=== PATIENT | male | born 1990 | race Caucasian/White ===

== ENCOUNTER 2021-06-24 15:10 | Emergency (ER) | payer OTHER, SELFPAY ==
[2021-06-24 15:18] VITALS: BP 147/95; PULSE 65; RESP 18; TEMP 36.9; O2SAT 100
[2021-06-24 17:54] VITALS: BP 138/103; PULSE 83; RESP 16; O2SAT 100
[2021-06-24 18:12] LABS: Basophils Absolute Auto 0.1 K/mm3 (0.0-0.1); Basophils Percent Auto 0.6 % (0.2-1.2); Eosinophils Absolute Auto 0.1 K/mm3 (0-0.3); Eosinophils Percent Auto 1.1 % (0-4.4); Hematocrit 47.8 % (42.0-52.0); Hemoglobin 16.4 g/dL (14.0-18.0); Immature Granulocyte Absolute 0.03 K/mm3 (0.00-0.031); Immature Granulocyte Percent A 0.4 % (0-0.5); Lymphocytes Absolute Auto 2.78 K/mm3 (0.9-3.2); Lymphocytes Percent Auto 33.3 % (18.3-44.2); Mean Corpuscular HGB Conc 34.3 g/dl (32-36); Mean Corpuscular Hemoglobin 30.3 pg (26-34); Mean Corpuscular Volume 88.4 fl (80-100); Mean Platelet Volume 10.4 fl (7.4-10.4); Monocytes Absolute Auto 0.8 K/mm3 (0.1-0.6); Monocytes Percent Auto 10.1 % (2.6-8.5); Neutrophils Absolute Auto 4.6 K/mm3 (1.3-6.7); Neutrophils Percent Auto 54.5 % (45.5-73.1); Platelet Count Result 313 k/mm3 (150-375); Red Blood Count 5.41 M/mm3 (4.6-6.20); Red Cell Distribution Width 12.4 % (11.5-14.5); White Blood Count 8.3 K/mm3 (4.5-10.0)
[2021-06-24 18:22] LABS: Alanine Aminotransferase 55 U/L (4-50); Alkaline Phosphatase 67 U/L (38-126); Anion Gap 13 mmol/L (8-16); Aspartate Amino Transferase 47 U/L (17-59); Bilirubin,Total 0.6 mg/dL (0.2-1.3); Blood Urea Nitrogen 15 mg/dL (9-20); Calcium 10.2 mg/dL (8.4-10.2); Carbon Dioxide 28 mmol/L (22-30); Chloride 99 mmol/L (98-107); Creatine Kinase 74 U/L (55-170); Estimated CRCL calculation 93 ml/min; Estimated Glomerular Filt Rate > 60; Glucose 95 mg/dL (65-110); Potassium 4.1 mmol/L (3.4-5.0); Sodium 140 mmol/L (137-145)
[2021-06-24 18:39] LABS: Amphetamine Screen Urine Negative (Negative); Barbiturate Screen Urine Negative (Negative); Benzodiazepines Screen Urine Negative (Negative); Cannabinoid Screen Urine Positive (Negative); Cocaine Screen Urine Positive (Negative); Methadone Screen Urine Negative (Negative); Opiate Screen Urine Negative (Negative); Phencyclidine Screen Urine Negative (Negative)
--- NOTE | 2021-06-24 18:40 | ED.GENADULT ---
HPI - General Adult General Chief complaint: Unspecified Stated complaint: Shaking,SOB Time Seen by Provider: 06/24/21 17:51 History of Present Illness HPI narrative: Patient presents with leg concerns. Patient reports he took a CBD gummy last night he woke up in the middle night with his legs shaking symptoms gradually improved throughout the day his legs were feeling heavy he was concerned so came in for evaluation. Patient reports he takes CBD Gummies before and never had a reaction like this. Denies any focal areas of numbness or weakness denies any lightheadedness, palpitations, shortness of breath Related Data Home Medications Medication Instructions Recorded Confirmed No Home Medications 06/24/21 06/24/21 Allergies Allergy/AdvReac Type Severity Reaction Status Date / Time No Known Allergies Allergy Verified 06/24/21 15:22 Review of Systems Review of Systems: CONSTITUTIONAL: Denies fever, chills, or sweats. EYES: Denies visual changes, redness, or discharge. ENT: Denies rhinorrhea, congestion, sore throat, or otalgia. CARDIOVASCULAR: Denies chest pain, palpitations, or edema. RESPIRATORY: Denies cough or dyspnea. GASTROINTESTINAL: Denies abdominal pain, nausea, vomiting, or diarrhea. GENITOURINARY: Denies dysuria or hematuria. SKIN: Denies rash or itching. MUSCULOSKELETAL: Denies back pain, joint pain, or myalgia. NEUROLOGIC: Denies headache, numbness, dizziness, or weakness. PSYCHIATRIC: Denies anxiety or depression. All systems reviewed & are unremarkable except as noted in HPI and below Exam Narrative: GENERAL: Well-appearing, well-nourished, and in no acute distress. HEAD: Normocephalic, atraumatic. EYES: PERRLA and EOMI. ENT: Nares clear, no rhinorrhea or epistaxis. Mucous membranes moist. NECK: Supple. No adenopathy or masses. No carotid bruits or JVD CHEST: Clear to auscultation. No respiratory distress. No wheezes rales or rhonchi HEART: Regular rate and rhythm. No murmur heard. Normal peripheral pulses. ABDOMEN: Soft, nontender, nondistended, normal active bowel sounds. EXTREMITIES: Normal range of motion. No edema. SKIN: Warm, dry, no rash. NEURO: No focal deficits. Alert and oriented x3. PSYCH: Normal mood and affect. Course Reevaluation(s) Reevaluation #1: Patient continues to clinically well labs plan reviewed with patient Date: 06/24/21 Time: 18:49 Vital Signs Vital signs: Vital Signs Temperature 36.9 C 06/24/21 15:18 Pulse Rate 65 06/24/21 15:18 Respiratory Rate 18 06/24/21 15:18 Blood Pressure 147/95 H 06/24/21 15:18 Pulse Oximetry 100 06/24/21 15:18 Temperature 36.9 C 06/24/21 15:18 Pulse Rate 83 06/24/21 17:54 Respiratory Rate 16 06/24/21 17:54 Blood Pressure 138/103 H 06/24/21 17:54 Pulse Oximetry 100 06/24/21 17:54 Medical Decision Making MDM Narrative Medical decision making narrative: H&P as above, vss, pt looks clinically well, exam without focal areas of tenderness, labs for THC and cocaine in the UDS, additional labs/img considered, symptomatic relief available as needed, on reevaluation pt continues to looks clinically well. Suspect reaction to substance, dns seizure, rhabdo. plan to tx/monitor as op w/ pcm f/u findings/plan discussed with pt, pt agree/comfortable with plan, return precautions given Vital Signs Vital Signs: Vital Signs Temperature 36.9 C 06/24/21 15:18 Pulse Rate 65 06/24/21 15:18 Respiratory Rate 18 06/24/21 15:18 Blood Pressure 147/95 H 06/24/21 15:18 Pulse Oximetry 100 06/24/21 15:18 Temperature 36.9 C 06/24/21 15:18 Pulse Rate 83 06/24/21 17:54 Respiratory Rate 16 06/24/21 17:54 Blood Pressure 138/103 H 06/24/21 17:54 Pulse Oximetry 100 06/24/21 17:54 Lab Data Result diagrams: 06/24/21 18:06 06/24/21 18:06 Labs: Lab Results 06/24/21 06/24/21 06/24/21 Range/Units 18:06 18:06 18:15 WBC 8.3 (4.5-10.0) K/mm3 RBC 5.41 (4.6-6.20)
== END 2021-06-24 19:13 | disposition home or self-care (01) ==
PROVIDERS: Emergency Provider Emergency Medicine; PCP Family Medicine
DX: F14.10 Cocaine abuse, uncomplicated (principal); F12.90 Cannabis use, unspecified, uncomplicated
CPT/HCPCS: 36415; 80053; 80307; 82550; 85025; 99283

== ENCOUNTER 2021-08-23 12:31 | Emergency (ER) | payer OTHER, SELFPAY ==
[2021-08-23 12:40] VITALS: BP 129/84; PULSE 72; RESP 16; TEMP 36; O2SAT 100
--- NOTE | 2021-08-23 13:31 | ED.EAR ---
HPI - Ear Problem General Chief complaint: Ear Stated complaint: Ear Pain Time Seen by Provider: 08/23/21 13:32 Source: patient Mode of arrival: ambulatory Limitations: no limitations History of Present Illness HPI Narrative: Jacinto Ca is a 30 yo male [facility] with [facility] PMH, marijuana smoker, who has bilateral ear pain and congestion for 3 days with a lot of drainage and worsening symptoms even though he has been using Mucinex and [id number] cold medications. He states the back of his tongue is black and that is a new finding for him also Related Data Allergies Allergy/AdvReac Type Severity Reaction Status Date / Time No Known Allergies Allergy Verified 08/23/21 13:26 Review of Systems Review of Systems: CONSTITUTIONAL: Denies fever, chills, sweats. EYES: Denies visual changes, redness, discharge. ENT: Has rhinorrhea, has congestion, has sore throat, bilateral otalgia. CARDIOVASCULAR: Denies chest pain, palpitations, edema. RESPIRATORY: Denies dyspnea, wheezing, productive cough GASTROINTESTINAL: Denies abdominal pain, nausea, vomiting, diarrhea. GENITOURINARY: Denies dysuria, hematuria, abnormal discharge SKIN: Denies rash or itching. NEUROLOGIC: Denies numbness, or focal weakness. PSYCHIATRIC: Denies anxiety or depression. [facility] Past Medical History Medical History No active medical problems Family History Family History Other No acute medical problems Social History Social History (Updated 08/23/21 @ 13:42 by Vanessa Pyle CNP) Smoking status: Never smoker Alcohol intake: current Comments At time of signature, I agree with nursing past medical, surgical, social and family history. There is no relevant family history pertinent to the presenting complaint. Exam Narrative: GENERAL: This is a well-nourished, well-developed patient, in mild distress. HEAD: normocephalic, atraumatic. EYES: Sclera clear/white. Vision is grossly intact. EARS: External ears normal, auditory canals erythema with fluid behind TMs,. Hearing grossly intact. NOSE: External nose normal without nasal discharge, nares with redness, has rhinorrhea. THROAT: Mucous membranes moist, posterior pharynx erythema NECK: Neck supple tender tender CARDIOVASCULAR: Regular rate and rhythm without murmurs, gallops, or rubs. RESPIRATORY: Clear to auscultation. Breath sounds equal bilaterally. No wheezes, rales, or rhonchi. GASTROINTESTINAL: Abdomen soft, SKIN: warm, intact with no suspicious lesions or rash, good texture and turgor. NEURO: awake, alert, and oriented to person, place and time. There were no obvious focal neurologic abnormalities. Steady gait EXTREMITIES: Normal range of motion. BACK: Nontender without deformity Course Course Emergency Course: Patient comes with 3 days of severe bilateral ear pain and congestion and hoarseness is due to a lot of drainage Started on Zithromax and prednisone along with Zyrtec Vital Signs Vital signs: Vital Signs Temperature 96.8 F L 08/23/21 12:40 Pulse Rate 72 08/23/21 12:40 Respiratory Rate 16 08/23/21 12:40 Blood Pressure 129/84 08/23/21 12:40 Pulse Oximetry 100 08/23/21 12:40 Temperature 96.8 F L 08/23/21 12:40 Pulse Rate 72 08/23/21 12:40 Respiratory Rate 16 08/23/21 12:40 Blood Pressure 129/84 08/23/21 12:40 Pulse Oximetry 100 08/23/21 12:40 Medical Decision Making Differential Diagnosis Differential Diagnosis: Pharyngitis versus bilateral otitis media versus sinus infection Vital Signs Vital Signs: Vital Signs Temperature 96.8 F L 08/23/21 12:40 Pulse Rate 72 08/23/21 12:40 Respiratory Rate 16 08/23/21 12:40 Blood Pressure 129/84 08/23/21 12:40 Pulse Oximetry 100 08/23/21 12:40 Temperature 96.8 F L 08/23/21 12:40 Pulse Rate 72 08/23/21 12:40 Respiratory Rate 16 10/
== END 2021-08-23 13:51 | disposition home or self-care (01) ==
PROVIDERS: Emergency Provider Nurse Practitioner; PCP Family Medicine
DX: H66.003 Acute suppurative otitis media without spontaneous rupture of ear drum, bilateral (principal)
CPT/HCPCS: 99213; G0463

== ENCOUNTER 2022-06-06 14:02 | Emergency (ER) | payer OTHER, SELFPAY ==
--- NOTE | ~2022-06-06 | XR_ITS ---
EXAMINATION: XR chest 2V Exam Date/Time: 06/06/2022 15:15 CDT HISTORY: Eval for pneumonia, LT SIDED CP PAIN X 2 DAYS, NO CARDIAC HX Comparison: None available. RESULT: Lines, tubes, and devices: None. Lungs and pleura: Clear. Left medial lower lung scar. Cardiomediastinal silhouette: Stable cardiomediastinal silhouette. Other: No acute osseous or upper abdominal finding. IMPRESSION: No acute cardiopulmonary process. Reviewed, dictated and finalized at location K.
--- NOTE | 2022-06-06 14:10 | ECG_ITS ---
Measurements Intervals Melbeta Rate: 68 P: 40 HI: 150 QRS: -10 QRSD: 91 T: 20 QT: 363 QTc: 386 Interpretive Statements SINUS RHYTHM BASELINE ARTIFACT- V4 NORMAL ECG Electronically Signed On 06-06-2022 15:29:33 CDT by Oleg Garcia D.O.
[2022-06-06 14:11] VITALS: BP 140/97; PULSE 81; RESP 16; TEMP 36.6; O2SAT 99
[2022-06-06 14:19] VITALS: PULSE 70; O2SAT 99
[2022-06-06 14:20] VITALS: O2SAT 99
[2022-06-06] MEDS: ACETAMINOPHEN 500 MG TABLET 1000 MG PO (15:25)
[2022-06-06 15:26] VITALS: BP 147/82; PULSE 67; RESP 20; O2SAT 97
--- NOTE | 2022-06-06 15:35 | ED.CHESTPAIN ---
HPI - Chest Pain General Chief Complaint: Chest Pain Stated Complaint: CP Time Seen by Provider: 06/06/22 14:47 History of Present Illness HPI narrative: This is a 31-year-old male who denies past medical history, who presents the emergency department today complaining of intermittent, 4 out of 10 sharp chest pain on the left side, lasting seconds at a time. He denies known aggravating or alleviating factors. He has not had pain like this before. This is not associated with nausea, vomiting, diaphoresis, or other shortness of breath. He denies known trauma or recent heavy lifting. He states he is otherwise in his normal state of health, though he does admit drinking last night. Related Data Allergies Allergy/AdvReac Type Severity Reaction Status Date / Time No Known Allergies Allergy Verified 06/06/22 14:20 Review of Systems Review of Systems: CONSTITUTIONAL: Denies fever, chills, or sweats. EYES: Denies visual changes, redness, or discharge. ENT: Denies rhinorrhea, congestion, sore throat, or otalgia. CARDIOVASCULAR: chest pain, Denies palpitations, or edema. RESPIRATORY: Denies cough or dyspnea. GASTROINTESTINAL: Denies abdominal pain, nausea, vomiting, or diarrhea. GENITOURINARY: Denies dysuria or hematuria. SKIN: Denies rash or itching. MUSCULOSKELETAL: Denies back pain, joint pain, or myalgia. NEUROLOGIC: Denies headache, numbness, dizziness, or weakness. PSYCHIATRIC: Denies anxiety or depression. Constitutional: Comments: CONSTITUTIONAL: Denies fever, chills, or sweats. EYES: Denies visual changes, redness, or discharge. ENT: Denies rhinorrhea, congestion, sore throat, or otalgia. CARDIOVASCULAR: chest pain, Denies palpitations, or edema. RESPIRATORY: Denies cough or dyspnea. GASTROINTESTINAL: Denies abdominal pain, nausea, vomiting, or diarrhea. GENITOURINARY: Denies dysuria or hematuria. SKIN: Denies rash or itching. MUSCULOSKELETAL: Denies back pain, joint pain, or myalgia. NEUROLOGIC: Denies headache, numbness, dizziness, or weakness. PSYCHIATRIC: Denies anxiety or depression. [facility] Past Medical History Medical History No active medical problems Family History Family History Other No acute medical problems Social History Social History Smoking status: Never smoker Alcohol intake: current Exam Narrative: GENERAL: Well-appearing, well-nourished, and in no acute distress. HEAD: Normocephalic, atraumatic. EYES: PERRLA and EOMI. ENT: Nares clear, no rhinorrhea or epistaxis. Mucous membranes moist. Oropharynx without tonsillar hypertrophy exudate or other lesions. NECK: Supple. No adenopathy or masses. No carotid bruits or JVD CHEST: Clear to auscultation. No respiratory distress. No wheezes rales or rhonchi HEART: Regular rate and rhythm. No murmur heard. Normal peripheral pulses. ABDOMEN: Soft, nontender, nondistended, normal active bowel sounds. EXTREMITIES: Normal range of motion. No edema. SKIN: Warm, dry, no rash. NEURO: No focal deficits. Alert and oriented x3. PSYCH: Normal mood and affect. Course Course Emergency Course: 16:38 - Patient presents with atypical chest pain. HEART score of 0. ECG not concerning for ischemia. Troponin negative. Chest x-ray not concerning for acute cardiopulmonary process. Patient's pain improved with oral analgesics. Will discharge with primary care follow-up. Discussed return emergency precautions including signs symptoms of ischemia, and respiratory distress. The patient voices understanding and is comfortable with this plan. All questions answered to the patient's satisfaction. Vital Signs Vital signs: Vital Signs Temperature 97.8 F 06/06/22 14:11 Pulse Rate 81 06/06/22 14:11 Respiratory Rate 16 06/06/22 14:11 Blood Pressure 140/97 H 06/06/22 14:11 Pulse Oxime
[2022-06-06 15:53] LABS: Basophils Percent Auto 0.6 % (0.2-1.2); Eosinophils Absolute Auto 0.1 K/mm3 (0-0.3); Eosinophils Percent Auto 0.8 % (0-4.4); Hematocrit 44.4 % (42.0-52.0); Hemoglobin 15.3 g/dL (14.0-18.0); Immature Granulocyte Absolute 0.03 K/mm3 (0.00-0.031); Immature Granulocyte Percent A 0.4 % (0-0.5); Lymphocytes Absolute Auto 1.73 K/mm3 (0.9-3.2); Lymphocytes Percent Auto 24.2 % (18.3-44.2); Mean Corpuscular HGB Conc 34.5 g/dl (32-36); Mean Corpuscular Hemoglobin 30.2 pg (26-34); Mean Corpuscular Volume 87.7 fl (80-100); Mean Platelet Volume 10.6 fl (7.4-10.4); Monocytes Absolute Auto 0.7 K/mm3 (0.1-0.6); Monocytes Percent Auto 9.5 % (2.6-8.5); Neutrophils Absolute Auto 4.6 K/mm3 (1.3-6.7); Neutrophils Percent Auto 64.5 % (45.5-73.1); Platelet Count Result 299 k/mm3 (150-375); Red Blood Count 5.06 M/mm3 (4.6-6.20); Red Cell Distribution Width 12.9 % (11.5-14.5); White Blood Count 7.2 K/mm3 (4.5-10.0)
[2022-06-06 16:04] LABS: Alanine Aminotransferase 58 U/L (6-50); Albumin Level 5.2 g/dL (3.5-5.1); Alkaline Phosphatase 84 U/L (38-126); Anion Gap 10 mmol/L (8-16); Aspartate Amino Transferase 37 U/L (17-59); Bilirubin,Total 0.5 mg/dL (0.2-1.3); Blood Urea Nitrogen 13 mg/dL (9-20); Calcium 10.3 mg/dL (8.4-10.2); Carbon Dioxide 26 mmol/L (22-30); Chloride 104 mmol/L (98-107); Estimated CRCL calculation 123 ml/min; Estimated Glomerular Filt Rate > 60; Glucose 96 mg/dL (65-110); Potassium 4.3 mmol/L (3.4-5.0); Sodium 140 mmol/L (137-145)
[2022-06-06 16:14] LABS: Troponin I < 0.012 ng/mL (0.000-0.034)
[2022-06-06 16:49] VITALS: BP 140/93; PULSE 68; RESP 18; O2SAT 97
== END 2022-06-06 16:51 | disposition home or self-care (01) ==
PROVIDERS: Emergency Provider Preventive Medicine Aerospace Medicine; PCP Family Medicine
DX: R07.89 Other chest pain (principal)
CPT/HCPCS: 36415; 71046; 80053; 84484; 85025; 93005; 99284; A9270

== ENCOUNTER 2022-08-09 08:50 | Emergency (ER) | payer OTHER, SELFPAY ==
--- NOTE | 2022-08-09 09:00 | ED.URI ---
HPI - URI/Sore Throat General Stated Complaint: Sore Throat Time Seen by Provider: 08/09/22 09:00 Source: patient Mode of arrival: ambulatory Limitations: no limitations History of Present Illness HPI Narrative: Mr. Ca is a 31-year-old male patient presenting to the clinic today with complaints of a sore throat, nasal congestion, and ear congestion x1 day. He reports no known fever or chills. States that his throat began hurting yesterday and has gradually gotten worse. He also reports when he blows his nose he is blowing out some yellow drainage. States that one of his coworkers has recently tested positive for COVID MD elicited complaint: sore throat and nasal congestion Related Data Home Medications Medication Instructions Recorded Confirmed No Home Medications 08/09/22 08/09/22 Allergies Allergy/AdvReac Type Severity Reaction Status Date / Time No Known Allergies Allergy Verified 08/09/22 09:06 Review of Systems Review of Systems: Pertinent positives per HPI. Patient denies any fever, chills, rash, headache, visual changes, dizziness, cough, shortness of breath, chest pain, palpitations, nausea, vomiting, diarrhea, constipation, abdominal pain, or any urinary issues. PMFSH Past Medical History Medical History No active medical problems Family History Family History Other No acute medical problems Social History Social History Smoking status: Never smoker Alcohol intake: current Comments At the time of my signature, I reviewed and agree with the nursing past medical, surgical, social, and family history. There is no relevant family history pertinent to the patient complaint. Exam Narrative: General: Well-developed, well nourished, in no apparent distress Head: Normocephalic, atraumatic Eyes: Pupils equally round and reactive to light bilaterally, EOM intact, sclera and conjunctive clear, no discharge, lids normal Ears: TMs intact and clear, ear canals clear, no drainage, grossly hearing normal. Nose: Nares patent, clear nasal discharge, mild inflammation, no sinus tenderness. Mouth: Oropharynx without lesions or masses, good dentition, MMM. Oropharynx red mild tonsillar enlargement without exudate Neck: Supple, trachea midline, no enlargement of anterior or posterior cervical nodes, no thyroid masses or goiter palpable. Cardio: Regular rate and rhythm, s1 and s2 normal, no murmur appreciated. Resp: Clear to auscultation bilaterally anteriorly and posteriorly, no rhonchi, rales, wheezing or rubs Course Course Emergency Course: Portions of this record may have been created with voice recognition software. Level of Care: Express Care Visit Vital Signs Vital signs: Vital signs reviewed MDM - URI/Sore Throat MDM Narrative Medical decision making narrative: At the time of visit patient is resting comfortably on the exam table. Strep screen and rapid COVID testing was obtained and both were negative in the clinic. Strep culture sent to the lab. Due to patient's exposure I feel that it is best we do a PCR test and send that off and have him off work until he receives results. He is agreeable to this. Supportive measures were discussed with the patient he voiced understanding of discharge instructions and agrees to the treatment plan Differential Diagnosis Differential diagnosis: Likely upper respiratory infection, otitis media, sinusitis, viral infection, bronchitis, influenza, pharyngitis and other Discharge Plan Discharge Clinical Impression: Acute upper respiratory infection, PND (post-nasal drip), Exposure to COVID-19 virus Patient Disposition: Home, Self-Care Condition: Stable Instructions: Antibiotic Form, Upper Respiratory Infection (ED), Postnasal Drip (DC), COVID-19 (Coronaviru
[2022-08-09 09:02] VITALS: BP 140/88; PULSE 65; RESP 16; TEMP 36.5; O2SAT 99
[2022-08-09 19:01] LABS: SARS-CoV-2 RNA PCR Negative
== END 2022-08-09 09:30 | disposition home or self-care (01) ==
PROVIDERS: Emergency Provider Nurse Practitioner Family
DX: J06.9 Acute upper respiratory infection, unspecified (principal); R09.82 Postnasal drip; Z20.822 Contact with and (suspected) exposure to COVID-19
CPT/HCPCS: 87081; 87426; 87880; 99213; C9803; G0463; U0003; U0005

== ENCOUNTER 2025-04-27 14:01 | Outpatient (CLI) | payer OTHER, SELFPAY ==
--- NOTE | ~2025-04-27 | MR_ITS ---
EXAMINATION: MR shoulder RT w con DATE: 04/27/2025 15:30 INDICATION: Glenoid labral tear at the right shoulder TECHNIQUE: Magnetic resonance imaging (MRI) of the right shoulder was performed following intra-jose cular gadolinium contrast injection and without intravenous contrast. Details of the glenohumeral robbie nt injection have been dictated separately. Sequences included axial T2-weighted FS FSE, axial T1-we ighted FS FSE, coronal oblique T1-weighted FS FSE, coronal oblique T2-weighted FSE, sagittal T2-weigh katya FS FSE, sagittal T1-weighted FSE, and ABER (abduction external rotation) T1-weighted FS FSE. COMPARISON: None. FINDINGS: Coracoacromial arch: The acromion undersurface is curved in morphology (type II). The coracoacromial ligament is normal. M inimal acromioclavicular osteoarthritis. Rotator cuff: Tiny linear focus of intrasubstance contrast along the articular side of the distal supraspinatus ten don at its superior facet footplate with subtle fraying along the articular surface on the ABER image s but without a measurable tear defect or evident retracted tear margin. The subscapularis is normal. Normal rotator cuff muscle bulk and signal. Biceps tendon, glenoid labrum and glenohumeral cartilage: Long head of the biceps tendon is normal. Glenohumeral cartilage is normal. Small shallow tear along the chondral labral junction at the 10:00 to 11:00 position of the posterior superior glenoid labrum. Bones and other: Normal marrow signal with no edema, fracture or abnormal marrow replacing process. No amount fluid in the subacromial/subdeltoid bursa to suggest bursitis. IMPRESSION: 1. Small shallow tear at the chondral labral junction at the posterior superior glenoid labrum. 2. Mild fraying with minimal contrast extending along a tiny articular sided split tear of the anteri or distal supraspinatus tendon without a measurable tear defect or discrete tear margin. Reviewed, dictated and finalized at location A. IMPRESSION: 1. Small shallow tear at the chondral labral junction at the posterior superior glenoid labrum. 2. Mild fraying with minimal contrast extending along a tiny articular sided sp lit tear of the anterior distal supraspinatus tendon without a measurable tear defect or discrete tear margin.
--- NOTE | ~2025-04-27 | XR_ITS ---
EXAMINATION: XR fl inj shoulder RT - MR/CT DATE: 04/27/2025 15:07 INDICATION: Right glenoid labral tear TECHNIQUE: A time-out was performed to verify the patient's name, date of , and procedure to b e performed. The procedure including the risks, benefits, and alternatives was discussed with the pat ient. Risks discussed included bleeding and infection. The patient understood the risks and agreed to proceed. The skin overlying the rotator cuff interval the right glenohumeral joint was prepped and draped in usual sterile fashion. Anesthetic was administered with 1% lidocaine subcutaneously. A 22 G needle was advanced under fluoroscopic guidance into the joint. Injection of 1 mL of Omnipaque 24 0 confirmed intra-articular position of the needle. Subsequently, injectate consisting of 12 mL of 2 :1:1 mixture of sterile saline:Omnipaque 240:1% lidocaine mixed 200:1 with 529 mg/mL Multihance gadol inium contrast was instilled with intra-articular administration confirmed with intermittent fluoros copy. There were no immediate complications. Fluoroscopy exposure time was 2.2 minutes. The total num amando of images was 212. Total DAP was 0.859 Gycm^2. FINDINGS: Real-time fluoroscopy demonstrates the needle in the right glenohumeral joint. . IMPRESSION: 1. Successful right glenohumeral joint injection of dilute gadolinium contrast mixture for subsequent MRI arthrogram which will be dictated separately. Reviewed, dictated and finalized at location A.
--- OUTSIDE RECORDS SUMMARY | 2025-04-27 14:07 | XMS_ITS | Referral Summary ---
Author Organization [address] Address [address] [place] [phone] Care Team Providers Care Human Resources Recruiter Name Role Phone Ricco Mckeon MD Primary Care Provider Encounters Date Type Department Care Team Description 03/19/2025 Results Follow-Up [facility] Primary Care at [address] [phone] Ricco Mckeon MD CBC with auto differential, Comprehensive metabolic panel, Lipid panel, Additional followed-up results: 6 03/16/2025 11:29 AM CDT - 03/16/2025 11:59 PM [place] [address] Class 1 obesity due to excess calories without serious comorbidity with body mass index (BMI) of 33.0 to 33.9 in adult; Encounter for hepatitis C screening test for low risk patient Discharge Disposition: Discharge to home or self care 03/16/2025 11:30 AM CDT Lab [facility] Outpatient Lab at [address] [phone] Preventative health care (Primary Dx) 03/16/2025 10:30 AM CDT Office Visit [facility] at [address] [phone] Ricco Mckeon MD Preventative health care (Primary Dx); Class 1 obesity due to excess calories without serious comorbidity with body mass index (BMI) of 33.0 to 33.9 in adult; Encounter for hepatitis C screening test for low risk patient; History of lipoma; Acute bacterial conjunctivitis of left eye; Vitamin D deficiency; Prediabetes; Elevated LFTs 03/15/2025 Documentation [facility] [address] [place] [phone] Allison Wall MA 03/15/2025 Orders Only [facility] [address] [place] [phone] Yarelis Marcano PA Glenoid labral tear, right, initial encounter (Primary Dx) 03/15/2025 8:15 AM CDT Ancillary Procedure [facility] Imaging at [address] [phone] Acute pain of right shoulder 03/15/2025 8:30 AM CDT Office Visit [facility] [address] [place] [phone] Yarelis Marcano PA Glenoid labral tear, right, initial encounter (Primary Dx) 03/02/2025 Results Follow-Up [facility] at [address] [phone] Juan Jose Khan NP Influenza A/B, RSV, and COVID-19 PCR Nasopharyngeal, Throat culture Throat 03/01/2025 3:29 PM CDT - 03/01/2025 11:59 PM CDT Hospital Encounter [address] [address] Nasopharyngitis acute Discharge Disposition: Discharge to home or self care 03/01/2025 3:00 PM CDT Office Visit [facility] at [address] [phone] Caterina Grimm NP Nasopharyngitis acute (Primary Dx) 02/14/2025 Telephone [facility] [address] [place] [address] [place] [phone] Ranjan Martini MD 02/13/2025 2:00 PM CDT Office Visit [facility] at [address] [phone] Juan Jose Khan, ALICE Acute pain of right shoulder (Primary Dx); Right acute serous otitis media, recurrence not specified 01/30/2025 3:00 PM CDT Office Visit [facility] at [address] [phone] Cheryl Duncan NP Bilateral impacted cerumen (Primary Dx); Non-recurrent acute serous otitis media of right ear from Last 3 Months Allergies No known active allergies Medications cetirizine (ZyrTEC) 10 mg tablet Take 1 tablet (10 mg total) by mouth daily Active fluticasone propionate (FLONASE) 50 mcg/actuation nasal sprayIndication s:Right acute serous otitis media, recurrence not specified Administer 2 sprays into each nostril daily 1 each Active Active Problems Problem Noted Date Diagnosed Date Vitamin D deficiency 03/19/2025 Assessment & Plan (03/19/2025 8:49 AM CDT): - new diagnosis - noted to have vitamin D deficiency on 02/2025 - most recent Vitamin D level is as shown below - patient is to be started on Vitamin D supplementation - patient is start 5000 international units of vitamin D3 daily OTC Lab Results Component Value Date 25HYDROVITD 19 (L) 03/16/2025 Prediabetes 03/19/2025 Assessment & Plan (03/19/2025 8:50 AM CDT): - new diagnosis - noted with A1c of 5.8 - first time, so recommend lifestyle intervention, weight management' - recheck in 4 months, A1c, order placed Elevated LFTs 03/19/2025 Assessment & Plan (03/19/2025 8:53 AM CDT): - new diagnosis - noted on lab work - no prior records to compare with - has known Obesity, Body mass index is 33.67 kg/m . - screen for alcohol use/overuse Lab Results Component Value Date ALT 80 (H) 03/16/2025 AST 52 (H) 03/16/2025 ALKPHOS 78 03/16/2025 BILITOT 0.4 03/16/2025 Glenoid labrum tear, right, subsequent encounter 03/19/2025 Class 1 obesity due to exces s calories without serious comorbidity with body mass index (BMI) of 33.0 to 33.9 in adult 03/16/2025 Assessment & Plan (03/16/2025 11:08 AM CDT): Wt Readings from Last 3 Encounters: 03/16/25 94.6 kg (208 lb 9.6 oz) 03/15/25 93.8 kg (206 lb 12.8 oz) 03/01/25 92.1 kg (203 lb) Body mass index is 33.67 kg/m . - chronic condition, not at goal, worse, reports was mostly <200 lbs - BMI Follow-up includes: nutrition counseling, exercise counseling and education provided - Recommend to exercise at least 30 minutes moderate to vigorous exercise most days of the week. (minimum 150 minutes weekly) Preventative health care 03/16/2025 Assessment & Plan (03/19/2025 8:48 AM CDT): - New or chronic worsening conditions: Pre-diabetes, elevated LFTs, vitamin D deficiency - Mental health: no significant psychiatric/mental health conditions affecting her day to day functioning - Dental health: Recommend regular dental care and cleaning. Discussed importance of regular tooth brushing, flossing, and dental visits. - Nutrition: Recommend moderation in sodium/caffeine intake, saturated fat and cholesterol, caloric balance, sufficient intake of fresh fruits, vegetables - Exercise: Recommend to exercise at least 30 minutes moderate to vigorous exercise most days of the week. (minimum 150 minutes weekly) - Immunizations: Age and sex appropriate immunizations reviewed and offered History of lipoma 03/16/2025 Assessment & Plan (03/16/2025 11:08 AM CDT): - hx of excision of lipoma of back Immunizations Immunization Administration Dates Next Due DTP 01/29/1994 DTaP, Unspecified 06/29/1997,06/13/1992,04/16/19 92,1991 HPV, Quadrivalent 06/26/2013,02/16/2013,12/19/19 13 Hep A, Pediatric 06/28/2007,06/23/2006 Hep B, Unspecified 05/31/2001,06/08/2000, 997 HiB 01/02/1993,06/13/1992,04/16/1992 Influenza, Trivalent, IM (MDV) 09/15/2011 Influenza, Unspecified 03/16/2025(Deferr ed: Patient Refused),11/22/2023(Deferred: Patient Refused),08/21/2009 MMR 06/29/1997,01/02/1993 Meningococcal MCV4P (Menactra) 06/23/2006 Tdap 06/23/2006 Social History Tobacco Use Types Packs/Day Years Used Date Smoking Tobacco: Never Smokeless Tobacco: Never Tobacco Cessation:Counseling Given: Not Answered Alcohol Use Standard Drinks/Week Comments Yes 0 (1 standard drink = 0.6 oz pur e alcohol) socially AUDIT-C Answer Date Recorded Q1: How often do you have a drink containing alc ohol? 2-3 times a week 10/09/2021 Q2: How many drinks containi ng alcohol do you have on a typical day when you are drinking? 1 or 2 10/09/2021 Q3: How often do you have si x or more drinks on one occasion? 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 Gender Identity Not on file Sexual Orientation Not on file Last Filed Vital Signs Vital Sign Reading Time Taken Comments Blood Pressure 122/86 03/16/2025 10:44 AM CDT Pulse 74 03/16/2025 10:44 AM CDT Temperature 36.8 C (98.2 F) 03/16/2025 10:44 AM CDT Respiratory Rate 18 03/15/2025 8:42 AM CDT Oxygen Saturation 98% 03/16/2025 10:44 AM CDT Inhaled Oxygen Concentration - - Weight 94.6 kg (208 lb 9.6 oz) 03/16/2025 10:44 AM CDT Height 167.6 cm (5' 6) 03/16/2025 10:44 AM CDT Body Mass Index 33.67 03/16/2025 10:44 AM CDT Plan of Treatment Not on file Procedures Procedure Name Priority Date/Time Associated Diagnosis Comments EGFR Routine 03/16/2025 11:29 AM CDT Class 1 obesity due to excess calories without serious comorbidity with body mass index (BMI) of 33.0 to 33.9 in adult DIFFERENTIAL AUTO Routine 03/16/2025 11:29 AM CDT Class 1 obesity due to excess calories without serious comorbidity with body mass index (BMI) of 33.0 to 33.9 in adult VITAMIN D 25 HYDROXY Routine 03/16/2025 11:29 AM CDT Class 1 obesity due to excess calories without serious comorbidity with body mass index (BMI) of 33.0 to 33.9 in adult THYROID FUNCTION CASCADE Routine 03/16/2025 11:29 AM CDT Class 1 obesity due to excess calories without serious comorbidity with body mass index (BMI) of 33.0 to 33.9 in adult HEMOGLOBIN A1C Routine 03/16/2025 11:29 AM CDT Class 1 obesity due to excess calories without serious comorbidity with body mass index (BMI) of 33.0 to 33.9 in adult LIPID PANEL Routine 03/16/2025 11:29 AM CDT Class 1 obesity due to excess calories without serious comorbidity with body mass index (BMI) of 33.0 to 33.9 in adult COMPREHENSIVE METABOLIC PANEL Routine 03/16/2025 11:29 AM CDT Class 1 obesity due to excess calories without serious comorbidity with body mass index (BMI) of 33.0 to 33.9 in adult CBC WITH AUTO DIFFERENTIAL Routine 03/16/2025 11:29 AM CDT Class 1 obesity due to excess calories without serious comorbidity with body mass index (BMI) of 33.0 to 33.9 in adult HEPATITIS C ANTIBODY Routine 03/16/2025 11:29 AM CDT Encounter for hepatitis C screening test for low risk patient XR SHOULDER RIGHT 2 OR MORE VIEWS Schedule Routine, Read Routine (OP Routine) 03/15/2025 8:27 AM CDT Acute pain of right shoulder THROAT CULTURE Routine 03/01/2025 3:29 PM CDT Nasopharyngitis acute INFLUENZA A/B, RSV, AND COVID-19 PCR Routine 03/01/2025 3:29 PM CDT Nasopharyngitis acute POC INFLUENZA A/B, COVID-19 ANTIGEN Routine 03/01/2025 3:24 PM CDT Nasopharyngitis acute POCT RAPID STREP Routine 03/01/2025 3:20 PM CDT Nasopharyngitis acute WA REMOVAL IMPACTED CERUMEN INSTRUMENTATION UNILAT Routine 01/30/2025 3:00 PM CDT Bilateral impacted cerumen from Last 3 Months Results * eGFR (03/16/2025 11:29 AM CDT) eGFR >90 >=60 mL/min/1. 73 m2 Comment: Interpretive Data Reference Interval Normal >/= 90 mL/min/1.73m2 Mildly decreased* 60 - 89 mL/min/1.73m2 Mildly to moderately decreased 45 - 59 mL/min/1.73m2 Moderately to severely decreased 30 - 44 mL/min/1.73m2 Severely decreased 15 - 29 mL/min/1.73m2 Kidney Failure < 15 mL/min/1.73m2 *Relative to young adult level Estimated glomerular filtration rate is determined by the 2020 CKD-EPI equation recommended by the National Kidney Foundation (A Unifying Approach to GFR Estimation: Recommendations of the NKF-ASK Task Force on Reassessing the Inclusion of Race in Diagnosing Kidney Disease, JASN 202). The CKD-EPI equation should not be used for patients with unstable renal function and has not been validated in children and those over 70. Current interpretive data was last reviewed 2021. Blood 03/16/2025 11:2 9 AM CDT 03/16/2025 10:00 PM CDT Ricco Mckeon MD LAB BLOOD ORDERABLES Fi nal Result [facility] [id number] [address] [place] [address] * (ABNORMAL) Differential, auto (03/16/2025 11:29 AM CDT) Neutrophil abs 5.77 1.50 - 6.50 K/cumm Imm gran abs 0.03 0.00 - 0.10 K/cumm [facility] Lymphocyte abs 3.07 0.80 - 3.30 K/cumm [facility] Monocyte abs 1.01(H) 0.20 - 0.80 K/cumm [facility] Eosinophil abs 0.13 0.00 - 0.50 K/cumm [facility] Basophil abs 0.05 0.00 - 0.10 K/cumm [facility] Neutrophil pct 57.4 % [facility] Comment: Interpretive Data Percent cell count reference ranges are not reported, since discordance with absolute values may lead to misinterpretation of CBC data. Current Interpretive Data was last revised on 2018. Imm gran pct 0.3 % [facility] Comment: Interpretive Data Percent cell count reference ranges are not reported, since discordance with absolute values may lead to misinterpretation of CBC data. Current Interpretive Data was last revised on 2018. Lymphocyte pct 30.5 % [facility] Comment: Interpretive Data Percent cell count reference ranges are not reported, since discordance with absolute values may lead to misinterpretation of CBC data. Current Interpretive Data was last revised on 2018. Monocyte pct 10.0 % [facility] Comment: Interpretive Data Percent cell count reference ranges are not reported, since discordance with absolute values may lead to misinterpretation of CBC data. Current Interpretive Data was last revised on 2018. Eosinophil pct 1.3 % [facility] Comment: Interpretive Data Percent cell count reference ranges are not reported, since discordance with absolute values may lead to misinterpretation of CBC data. Current Interpretive Data was last revised on 2018. Basophil pct 0.5 % [facility] Comment: Interpretive Data Percent cell count reference ranges are not reported, since discordance with absolute values may lead to misinterpretation of CBC data. Current Interpretive Data was last revised on 2018. Blood 03/16/2025 11:2 9 AM CDT 03/16/2025 9:50 PM CDT Ricco Mckeon MD LAB BLOOD ORDERABLES Fi nal Result Performing Organization Address [facility] Co de Phone Number DIONNE [phone] [address] [facility] [place] [address] * Thyroid Function [place] (03/16/2025 11:29 AM CDT) Pathologist [facility] TSH 1.96 0.30 - 4.20 mcIUnit/mL Blood 03/16/2025 11:2 9 AM CDT 03/16/2025 9:50 PM CDT Ricco Mckeon MD LAB BLOOD ORDERABLES Fi nal Result Performing Organization Address [facility] de Phone Number DIONNE DIMAS [phone] [address] [facility] [place] [address] * (ABNORMAL) CBC with auto differential (03/16/2025 11:29 AM CDT) Pathologist [facility] WBC 10.06(H) 3.80 - 9.90 K/cumm Hgb 15.9 13.0 - 17.5 g/dL [facility] Hct 48.6 38.9 - 50.3 % [facility] Plt 323 150 - 400 K/cumm [facility] MPV 11.4 9.1 - 12.3 fL [facility] RBC 5.32 4.30 - 5.80 M/cumm [facility] MCV 91.4 81.3 - 96.4 fL [facility] MCH 29.9 27.1 - 33.3 pg [facility] MCHC 32.7 32.3 - 35.7 g/dL [facility] RDW CV 12.1 11.1 - 14.9 % [facility] RDW SD 40.6 35.7 - 48.1 fL [facility] NRBC abs 0.00 0.00 - 0.01 K/cumm [facility] Blood 03/16/2025 11:2 9 AM CDT 03/16/2025 9:50 PM CDT Ricco Mckeon MD LAB BLOOD ORDERABLES Fi nal Result Performing Organization Address [facility] de Phone Number [facility] [id number] [address] [place] [address] * Hepatitis C antibody Blood (03/16/2025 11:29 AM CDT) [facility] Hep C Ab Nonreactive Nonreactive Comment: Interpretive Data Nonreactive: Antibodies to HCV not detected. Does NOT exclude the possibility of recent exposure to HCV. Equivocal: Equivocal for HCV antibodies. Supplemental molecular testing will be automatically performed to determine infection status in accordance with current CDC screening recommendations. Reactive: Positive for HCV antibodies. This may represent current or past HCV infection. Supplemental molecular testing will be automatically performed to determine current infection status in accordance with current CDC screening recommendations. Interpretive data was last revised on 2020. Blood 03/16/2025 11:2 9 AM CDT 03/16/2025 9:50 PM CDT Ricco Mckeon MD LAB MICROBIOLOGY - GENE RAL ORDERABLES Final Result Performing Organization Address [facility] de Phone Number [facility] [phone] [address] [facility] [place] [address] * (ABNORMAL) Vitamin D 25 hydroxy (03/16/2025 11:29 AM CDT) [facility] Vitamin D 25-OH 19(L) 30 - 80 ng/mL Blood 03/16/2025 11:2 9 AM CDT 03/16/2025 9:50 PM CDT Ricco Mckeon MD LAB BLOOD ORDERABLES Fi nal Result Performing Organization Address [facility] de Phone Number DIONNE DIMAS [phone] Department [place] [address] * (ABNORMAL) Hemoglobin A1c (03/16/2025 11:29 AM CDT) Hgb A1C 5.8(H) 4.0 - 5.6 % Estimated Average Glucose 120 mg/dL DIONNE DIMAS Comment: The ADA recommends reporting an estimated Average Glucose (eAG) with all Hemoglobin A1c results using the equation derived from a study of 507 normal and diabetic adults. Minority populations were underrepresented and children were not included. (Diabetes Care 31:0726-5549, 2008). The eAG is not equivalent to a fasting glucose. Blood 03/16/2025 11:2 9 AM CDT 03/16/2025 9:50 PM CDT Ricco Mckeon MD LAB BLOOD ORDERABLES nal Result Performing Organization Address [facility] de Phone Number DIONNE DIMAS [phone] [address] [place] [address] * Lipid panel (03/16/2025 11:29 AM CDT) Pathologist [facility] Cholesterol 168 30 - 199 mg/dL Comment: Interpretive Data Ages < or = 19 years Acceptable: <170 mg/dL Borderline high: 170-199 mg/dL High: >or= 200 mg/dL Ages > or = 20 years Desirable: <200 mg/dL Borderline high: 200-239 mg/dL High: >or= 240 mg/dL Literature References: 1. Expert Panel on Integrated Guidelines for Cardiovascular Health and Risk Reduction in Children and Adolescents. Pediatrics 2011;128:S213 2. NCEP Expert Panel. Circulation 2004;110:227 Current Interpretive Data was last revised on 2018. Triglycerides 126 <=149 mg/dL DIONNE DIMAS Comment: Interpretive Data Ages < or = 9 years Acceptable: <75 mg/dL Borderline high: 75-99 mg/dL High: >or= 100 mg/dL Ages 10 to 20 years Acceptable: <90 mg/dL Borderline high: 90-129 mg/dL High: >or= 130 mg/dL Ages > or = 20 years Desirable: <150 mg/dL Borderline high: 150-199 mg/dL High: 200-499 mg/dL Very high: >or= 499 mg/dL Literature References: 1. Expert Panel on Integrated Guidelines for Cardiovascular Health and Risk Reduction in Children and Adolescents. Pediatrics 2011;128:S213 2. NCEP Expert Panel. Circulation 2004;110:227 Current Interpretive Data was last revised on 2018. HDL 42 >=40 mg/dL DIONNE DIMAS Comment: Interpretive Data Ages < or = 19 years Acceptable: >45 mg/dL Borderline low: 40-45 mg/dL Low: <40 mg/dL Ages > or = 20 years Desirable: >or= 60 mg/dL Low: <40 mg/dL Literature References: 1. Expert Panel on Integrated Guidelines for Cardiovascular Health and Risk Reduction in Children and Adolescents. Pediatrics 2011;128:S213 2. NCEP Expert Panel. Circulation 2004;110:227 Current Interpretive Data was last revised on 2018. LDL, calculated 103 <=129 mg/dL DIONNE DIMAS Comment: Interpretive Data Ages < or = 19 years Acceptable: <110 mg/dL Borderline high: 110-129 mg/dL High: >or= 130 mg/dL Ages > or = 20 years Optimal: <100 mg/dL Near optimal: 100-129 mg/dL Borderline high: 130-159 mg/dL High: >160 mg/dL Calculated using the Mohit LDL-C estimating equation. This equation was implemented on 2024. Prior to this date LDL-C was estimated using the Friedewald equation. Literature References: 1. Expert Panel on Integrated Guidelines for Cardiovascular Health and Risk Reduction in Children and Adolescents. Pediatrics 2011;128:S213 2. NCEP Expert Panel. Circulation 2004;110:227 3. Mohit Morgan et al. BRITTANY Cardiol. 2020 March 22;5(5):540-548. doi: 10.1001/jamacardio.2020.0013 Current Interpretive Data was last revised on 2024. Non-HDL Cholesterol 126 mg/dL DIONNE DIMAS Comment: Interpretive Data Ages < or = 19 years Acceptable: <120 mg/dL Borderline high: 120-144 mg/dL High: >145 mg/dL Ages > or = 20 years When triglycerides are >200 mg/dL, Non-HDL cholesterol is a secondary target of therapy with treatment goals that are 30 mg/dL greater than the LDL cholesterol target. Literature References: 1. Expert Panel on Integrated Guidelines for Cardiovascular Health and Risk Reduction in Children and Adolescents. Pediatrics 2011;128:S213 2. NCEP Expert Panel. Circulation 2004;110:227 Current Interpretive Data was last revised on 2018. Chol/HDL ratio 4 [facility] Blood 03/16/2025 11:2 9 AM CDT 03/16/2025 9:50 PM CDT Narrative [facility] - 03/16/2025 10:27 PM CDT Has the patient been fasting for 8 hours or more?->No Ricco Mckeon MD LAB BLOOD ORDERABLES Fi nal Result [facility] [id number] [address] [place] [address] * (ABNORMAL) Comprehensive metabolic panel (03/16/2025 11:29 AM CDT) Sodium 140 135 - 145 mmol/L Potassium, pl 4.4 3.3 - 4.9 mmol/L [facility] Chloride 104 97 - 110 mmol/L [facility] CO2 23 22 - 32 mmol/L [facility] Anion gap 13 2 - 15 mmol/L [facility] BUN 17 6 - 25 mg/dL [facility] Creatinine 0.94 0.80 - 1.30 mg/dL [facility] Glucose 98 70 - 199 mg/dL [facility] Comment: Interpretive Data Fasting glucose >/= 126 mg/dl is diagnostic for diabetes. Fasting is defined as no caloric intake for at least 8 hours. Fasting glucose between 100 mg/dl to 125 mg/dl is diagnostic of prediabetes. In a patient with classic symptoms of hyperglycemia or hyperglycemic crisis, a random glucose >/= 200 mg/dl is diagnostic for diabetes. In the absence of unequivocal hyperglycemia, results should be confirmed by repeat testing. The classification and Diagnosis of Diabetes Diabetes Care 2021; 46: S19-S40. Current interpretive data was last revised 2022. Calcium 9.5 8.5 - 10.3 mg/dL [facility] Bilirubin, total 0.4 0.1 - 1.2 mg/dL [facility] Protein, pl 7.8 6.5 - 8.5 g/dL [facility] Albumin 4.6 3.5 - 5.0 g/dL [facility] Alk phos 78 40 - 130 Units/L [facility] ALT 80(H) 7 - 55 Units/L [facility] AST 52(H) 10 - 50 Units/L [facility] Blood 03/16/2025 11:2 9 AM CDT 03/16/2025 9:50 PM CDT Ricco Mckeon MD LAB BLOOD ORDERABLES Fi nal Result [facility] [id number] [address] [place] [address] * XR Shoulder Right 2 or More Views (03/15/2025 8:27 AM CDT) Anatomical Region Laterality Modality Upper Extremities, Shoulder Right Digi alaina Radiography Narrative 03/15/2025 9:16 AM CDT Radiographs of the right shoulder reviewed interpreted. No acute fractures or destructive osseous lesions. Joint space is maintained. Yarelis DURANT IMG XR PROCEDURES Final Result * Influenza A/B, RSV, and COVID-19 PCR Nasopharyngeal (03/01/2025 3:29 PM CDT) COVID-19 RNA Negative Negative CH Influenza A RNA Negative Negative [facility] CH Influenza B RNA Negative Negative [facility] CH RSV RNA Negative Negative C[facility]ER Comment: Interpretive data: Testing performed by [facility]. This test is performed using the [employer] Xpert Xpress CoV-2/Flu/RSV plus assay. This is a multiplex, real-time reverse transcriptase PCR assay intended for the qualitative detection of nucleic acid from SARS-CoV-2, influenza A, influenza B, and respiratory syncytial virus. This assay has been cleared by the [place] Food and Drug administration. The performance characteristics have been verified by the [facility]. Results must be considered in the clinical context, and a negative result does not rule out infection. Interpretive Data last revised 2023 Nasopharyngeal 03/01/2025 3: 29 PM CDT 03/01/2025 9:30 PM CDT Narrative DIONNE - 03/01/2025 10:45 PM CDT Is the Patient experiencing symptoms consistent with COVID?->Yes Caterina Grimm NP LAB MICROBIOLOGY - GENERAL ORD ERABLES Final Result Performing Organization Address [facility]/ZIP Co de Phone Number ABDIFATAHBLAIR DIMAS [address] [address] [place] [address] [place] * Throat culture Throat (03/01/2025 3:29 PM CDT) Report Final Report: No growth of pathogens. Comment:Testing performed by : [facility], [address] [place]., [address] Throat 03/01/2025 3:29 PM CDT 03/02/2025 2:01 AM CDT Narrative DIONNE - 03/02/2025 9:04 PM CDT Testing performed by [facility] Microbiology Laboratory ([phone]). us Caterina Grimm NP LAB MICROBIOLOGY - GENERAL ORD ERABLES Final Result Performing Organization Address [facility] Co de Phone Number DIONNE JUDIE [address] [address] [place] [address] * POC Influenza A/B, COVID-19 antigen (03/01/2025 3:24 PM CDT) Influenza A Ag, POC Negative Negative [facility] Influenza B Ag, POC Negative Negative [facility] COVID-19 Ag POC Presumptive Negative Presumptive Negative, Invalid [facility] Nasal 03/01/2025 3:24 PM CDT us Caterina Grimm NP POINT OF CARE TEST ORDERABLES Final Result [facility] [address] [place] [address], [facility] * POCT rapid strep A (03/01/2025 3:20 PM CDT) Rapid Strep A, POC Negative Negative Swab 03/01/2025 3:20 PM CDT us Caterina Grimm DISEASE INTERVENTION SPECIALIST POINT OF CARE TEST ORDERABLES Final Result * WA REMOVAL IMPACTED CERUMEN INSTRUMENTATION UNILAT (01/30/2025 3:00 PM CDT) Narrative Cheryl Duncan NP - 01/30/2025 3:00 PM CDT Cheryl Duncan NP 01/30/2025 4:56 PM Ear Cerumen Removal Performed by: Cheryl Duncan NP Authorized by: Cheryl Duncan NP Consent Given by: Patient Verbal consent obtained: Yes Location: Bilateral L ear cerumen impacted?: Yes L ear method of removal: Instrumentation L ear instrumentation: Curette L ear magnification: Otoscope R ear cerumen impacted?: Yes R ear method of removal: Instrumentation R ear instrumentation: Curette R ear magnification: Otoscope Inspection: TM intact Hearing quality: Improved Patient tolerance: Patient tolerated the procedure well with no immediate complications Cheryl Duncan DISEASE INTERVENTION SPECIALIST IN CLINIC/BEDSIDE ORDERABL ES Final Result from Last 3 Months Insurance [employer] OPEN ACCESS [facility] CHOICE PLUS Care Teams Human Resources Recruiter Relationship Specialty Start Date End Date Ricco Mckeon MD PCP - General Family Medicine 03/16/25
--- OUTSIDE RECORDS SUMMARY | 2025-04-27 14:07 | XMS_ITS | Clinical Summary ---
Author Organization [facility] Address [address] [place] [address] Care Team Providers Care Half Section Ironer Name Role Phone Unavailable Primary Care Provider Unavailabl e Allergies No known active allergies Medications No known medications Active Problems No known active problems Family History Medical History Relation Name Comments Cancer Maternal Grandmother Diabetes Maternal Grandmother Stroke Paternal Grandmother Relation Name Status Comments Maternal Grandmother Paternal Grandmother Social History Tobacco Use Types Packs/Day Years Used Date Smoking Tobacco: Never Smokeless Tobacco: Never Tobacco Cessation:Counseling Given: Not Answered Alcohol Use Standard Drinks/Week Comments Yes 0 (1 standard drink = 0.6 oz pur e alcohol) Sex and Gender Information Value Date Recorded Sex Assigned at Not on file Legal Sex Male 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 Gender Identity Not on file Sexual Orientation Not on file Last Filed Vital Signs Vital Sign Reading Time Taken Comments Blood Pressure 132/93 11/05/2023 1:16 PM JOINT RUNNER Pulse 61 11/05/2023 1:16 PM JOINT RUNNER Temperature - - Respiratory Rate - - Oxygen Saturation - - Inhaled Oxygen Concentration - - Weight 92.1 kg (203 lb) 11/05/2023 1:16 PM JOINT RUNNER Height 170.2 cm (5' 7) 11/05/2023 1:16 PM JOINT RUNNER Body Mass Index 31.79 11/05/2023 1:16 PM JOINT RUNNER Plan of Treatment Health Maintenance Due Date Last Done Comments DTAP/TDAP/TD VACCINES (1 - Tdap) 2010 HEPATITIS B VACCINES (1 of 3 - 19+ 3-dose series) 2010 INFLUENZA VACCINE (#1) 2024 HPV VACCINES Aged Out No longer eligi ble based on patient's age to complete this topic Insurance [facility] OPEN ACCESS HMO
--- OUTSIDE RECORDS SUMMARY | 2025-04-27 14:08 | XMS_ITS | Encounter Summary ---
Author Organization [facility] Healthcare Address [address] [place] [address] Care Team Providers Care Blend Plant Operator Name Role Phone Ricco Mckeon MD Primary Care Provider Reason for Visit * Reason Onset Date Comments Call Back 03/19/2025 Encounter Details Date Type Department Care Team (Latest Contact Info) Description 03/19/2025 Results Follow-Up [facility] Medical [facility] Primary Care at [address] [phone] Ricco Mckeon MD [address] [place] [address] [address] [place] [address] CBC with auto differential, Comprehensive metabolic panel, Lipid panel, Additional followed-up results: 6 Social History Tobacco Use Types Packs/Day Years Used Date Smoking Tobacco: Never Smokeless Tobacco: Never Alcohol Use Standard Drinks/Week Comments Yes 0 [...] on file 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 - 03/19/2025 12:28 PM CDT Call Back Caller???s Concern: Patient notified, and transferred to the appt. Line to make a 3 month follow-upon labs. Does message need to be routed? No * Result Encounter Note - Ricco Mckeon MD - 03/19/2025 8:59 AM CDT Tried to call patient but went to voicemail x2. Lab results showed the following findings. Vitamin-D deficiency and will need start taking vitamin D3 5000 IU which is available [id number]. Good fasting blood sugar, normal kidney functions but mildly elevated liver enzymes. I tried to review past records which I do not have I am not sure ifthis is new. I will need to have this repeated with a repeat blood work in 3 months along with the vitamin-D level to see if this has improved. There is small evidence of borderline prediabetes basedon average blood sugars but this is minimal in something that can easily be improved with diet. Otherwise no signs of anemia or major blood count abnormalities, no prior exposure to hepatitis-C with good cholesterol levels and thyroid function. Summary I have set up repeat lab work for the vitamin-D, liver enzymes as well as average blood sugar for prediabetes to be done in 3 months. Please set up a follow-up with me in 3 months the same time as well. documented in this encounter Plan of Treatment Not on file documented as of this encounter Visit Diagnoses Not on filedocumented in this encounter Care Teams Blend Plant Operator Relationship Specialty Start Date End Date Ricco Mckeon MD PCP - General Family Medicine 03/16/25 documented as of this encounter
--- OUTSIDE RECORDS SUMMARY | 2025-04-27 14:08 | XMS_ITS | Encounter Summary ---
Author Organization [facility] Healthcare Address [address] [place] [address] Care Team Providers Care Research And Evaluation Analyst Name Role Phone Unknown, Notinfile Primary Care Provider Unavail Ricco Bell MD Primary Care Provider Encounter Details Date Type Department Care Team (Late st Contact Info) Description 03/02/2025 Results Follow-Up [facility] Medical [facility] Convenient Care at [address] [phone] Juan Jose Khan NP [address] [place] [address] [address] [place] [address] Influenza A/B, RSV, and COVID-19 PCR Nasopharyngeal, Throat culture Throat Social History Tobacco Use Types Packs/Day Years [...] points, staff should administer the PHQ-9) 0 04/16/2020 Sex and Gender Information Value Date Recorded Sex Assigned at Not on file 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
--- OUTSIDE RECORDS SUMMARY | 2025-04-27 14:08 | XMS_ITS | Clinical Summary ---
Author Organization [address] Address [address] [place] [address] Care Team Providers Care Ice Cream Dipper Name Role Phone Ricco Mckeon MD Primary Care Provider Allergies No known active allergies Medications cetirizine [...] hx of excision of lipoma of back Encounters Date Type Department Care Team Description 03/19/2025 Results Follow-Up [facility] Primary Care at [address] [phone] Ricco Mckeon MD CBC with auto differential, Comprehensive metabolic panel, Lipid panel, Additional followed-up results: 6 03/16/2025 11:30 AM CDT Lab [facility] Outpatient Lab at [address] [phone] Preventative health care (Primary Dx) 03/16/2025 11:29 AM CDT - 03/16/2025 11:59 PM CDT Hospital Encounter [address] [address] Class 1 obesity due to excess calories without serious comorbidity with body mass index (BMI) of 33.0 to 33.9 in adult; Encounter for hepatitis C screening test for low risk patient Discharge Disposition: Discharge to home or self care 03/16/2025 10:30 AM CDT Office Visit [facility] Primary Care at [address] [phone] Ricco Mckeon MD Preventative health care (Primary Dx); Class 1 obesity due to excess calories without serious comorbidity with body mass index (BMI) of 33.0 to 33.9 in adult; Encounter for hepatitis C screening test for low risk patient; History of lipoma; Acute bacterial conjunctivitis of left eye; Vitamin D deficiency; Prediabetes; Elevated LFTs 03/15/2025 8:30 AM CDT Office Visit [facility] [address] [place] [phone] Yarelis Marcano PA Glenoid labral tear, right, initial encounter (Primary Dx) 03/15/2025 8:15 AM CDT Ancillary Procedure [facility] Imaging at [address] [phone] Acute pain of right shoulder 03/15/2025 Documentation [facility] [address] [place] [phone] Allison Wall MA 03/15/2025 Orders Only [facility] Medical [facility] Orthopedic and Sports Medicine [address] [place] [phone] Yarelis Marcano PA Glenoid labral tear, right, initial encounter (Primary Dx) 03/02/2025 Results Follow-Up [facility]ient [facility] at [address] [phone] Juan Jose Khan, ALICE Influenza A/B, RSV, and COVID-19 PCR Nasopharyngeal, Throat culture Throat 03/01/2025 3:29 PM CDT - 03/01/2025 11:59 PM CDT Hospital Encounter [place] [phone] Nasopharyngitis acute Discharge Disposition: Discharge to home or self care 03/01/2025 3:00 PM CDT Office Visit [facility] at [address] [phone] Caterina Grimm NP Nasopharyngitis acute (Primary Dx) 02/14/2025 Telephone [facility] [address] [phone] Ranjan Martini MD 02/13/2025 2:00 PM CDT Office Visit [facility] at [address] [phone] Juan Jose Khan, ALICE Acute pain of right shoulder (Primary Dx); Right acute serous otitis media, recurrence not specified 01/30/2025 3:00 PM CDT Office Visit [facility] at [address] [phone] Cheryl Duncan NP Bilateral impacted cerumen (Primary Dx); Non-recurrent acute serous otitis media of right ear from Last 3 Months Immunizations Immunization Administration Dates Next Due DTP 01/29/1994 DTaP, Unspecified 06/29/1997,06/13/1992,04/16/19 92,1991 HPV, Quadrivalent 06/26/2013,02/16/2013,12/19/19 13 Hep A, Pediatric 06/28/2007,06/23/2006 Hep B, Unspecified 05/31/2001,06/08/2000, 997 HiB 01/02/1993,06/13/1992,04/16/1992 Influenza, Trivalent, IM (MDV) 09/15/2011 Influenza, Unspecified 03/16/2025(Deferr ed: Patient Refused),11/22/2023(Deferred: Patient Refused),08/21/2009 MMR 06/29/1997,01/02/1993 Meningococcal MCV4P (Menactra) 06/23/2006 Tdap 06/23/2006 Surgical History Surgery Date Site/Laterality Comments MULTIPLE TOOTH EXTRACTIONS 11/22/2005 - 11/21/2006 Medical History Medical History Date Comments Allergic rhinitis Family History Medical History Relation Name Comments No Known Problems Father No Known Problems Mother No Known Problems Sister Relation Name Status Comments Father Alive Mother Alive Sister Alive Social History Tobacco Use Types Packs/Day Years [...] on file 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 Gender Identity Not on file Sexual Orientation Not on file Obstetrics History Last Filed Vital Signs Vital Sign Reading [...] 03/16/2025 10:44 AM CDT Plan of Treatment Health Maintenance Due Date Last Done Comments Varicella Vaccines (1 of 2 - 13+ 2-dose series) 2004 DTaP/Tdap/Td Vaccine (7 - Td or Tdap) 06/23/2016 06/23/2006, 06/29/1997, 01/29/1994, Additional history exists Covid-19 Vaccine ( season) 2024 02/25/2021, 02/03/2021 Influenza Vaccine (Season Ended) 2025 09/15/2011, 08/21/2009 Depression Screening 03/16/2026 03/16/2025, 04/16/20 20 Regular Well Visit/Exam 18-64 03/16/2026 03/16/2025 Hepatitis B Screening Completed 05/31/2001 , 06/08/2000, 06/29/1997 HPV Vaccines Completed 06/26/2013, 01/21, 12/19/2012 Hepatitis C Screening Completed 03/16/2025 Pneumococcal vaccine <65 Aged Out No longer eligible based on patient's age to complete this topic Procedures Procedure Name Priority Date/Time Associated Diagnosis [...] Routine 03/01/2025 3:20 PM CDT Nasopharyngitis acute OK REMOVAL IMPACTED CERUMEN INSTRUMENTATION UNILAT Routine 01/30/2025 [...] of Race in Diagnosing Kidney Disease, JASN 2020). The CKD-EPI equation should not be used for patients with unstable renal function and has not been validated in children and those over 70. Current interpretive data was last reviewed 2021. Blood 03/16/2025 11:2 9 AM CDT 03/16/2025 10:00 PM CDT Ricco Mckeon MD LAB BLOOD ORDERABLES nal Result DIONNE DIMAS [address] [address] Department [place] [address] * (ABNORMAL) Differential, auto (03/16/2025 11:29 AM CDT) Neutrophil abs 5.77 1.50 - 6.50 K/cumm Imm gran abs 0.03 0.00 - 0.10 K/cumm [facility] Lymphocyte abs 3.07 0.80 - 3.30 K/cumm [facility] Monocyte abs 1.01(H) 0.20 - 0.80 K/cumm [facility] Eosinophil abs 0.13 0.00 - 0.50 K/cumm [facility] Basophil abs 0.05 0.00 - 0.10 K/cumm [facility] Neutrophil pct 57.4 % [facility] Comment: Interpretive Data Percent cell count reference ranges are not reported, since discordance with absolute values may lead to misinterpretation of CBC data. Current Interpretive Data was last revised on 2018. Imm gran pct 0.3 % [facility] Comment: Interpretive Data Percent cell count reference ranges are not reported, since discordance with absolute values may lead to misinterpretation of CBC data. Current Interpretive Data was last revised on 2018. Lymphocyte pct 30.5 % [facility] Comment: Interpretive Data Percent cell count reference ranges are not reported, since discordance with absolute values may lead to misinterpretation of CBC data. Current Interpretive Data was last revised on 2018. Monocyte pct 10.0 % [facility] Comment: Interpretive Data Percent cell count reference ranges are not reported, since discordance with absolute values may lead to misinterpretation of CBC data. Current Interpretive Data was last revised on 2018. Eosinophil pct 1.3 % [facility] Comment: Interpretive Data Percent cell count reference ranges are not reported, since discordance with absolute values may lead to misinterpretation of CBC data. Current Interpretive Data was last revised on 2018. Basophil pct 0.5 % [facility] Comment: Interpretive Data Percent cell count reference ranges are not reported, since discordance with absolute values may lead to misinterpretation of CBC data. Current Interpretive Data was last revised on 2018. Blood 03/16/2025 11:2 9 AM CDT 03/16/2025 9:50 PM CDT Ricco Mckeon MD LAB BLOOD ORDERABLES Fi nal Result ABDIFATAHBLAIR DIMAS [address] [address] Department [place] [address] * Thyroid Function [place] (03/16/2025 11:29 AM CDT) TSH 1.96 0.30 - 4.20 mcIUnit/mL Blood 03/16/2025 11:2 9 AM CDT 03/16/2025 9:50 PM CDT Ricco Mckeon MD LAB BLOOD ORDERABLES Fi nal Result Performing Organization Address City/[facility] Co de Phone Number DIONNE DIMAS [address] [address] [place] [address] * (ABNORMAL) CBC with auto differential (03/16/2025 11:29 AM CDT) [facility] WBC 10.06(H) 3.80 - 9.90 K/cumm Hgb 15.9 13.0 - 17.5 g/dL [facility] Hct 48.6 38.9 - 50.3 % [facility] Plt 323 150 - 400 K/cumm [facility] MPV 11.4 9.1 - 12.3 fL [facility] RBC 5.32 4.30 - 5.80 M/cumm [facility] MCV 91.4 81.3 - 96.4 fL [facility] MCH 29.9 27.1 - 33.3 pg [facility] MCHC 32.7 32.3 - 35.7 g/dL [facility] RDW CV 12.1 11.1 - 14.9 % [facility] CH RDW SD 40.6 35.7 - 48.1 fL [facility] NRBC abs 0.00 0.00 - 0.01 K/cumm [facility] Blood 03/16/2025 11:2 9 AM CDT 03/16/2025 9:50 PM CDT Ricco Mckeon MD LAB BLOOD ORDERABLES Fi nal Result Performing Organization Address [facility] Co de Phone Number DIONNE DIMAS [address] [address] [place] [place] [address] * Hepatitis C antibody Blood (03/16/2025 11:29 AM CDT) [facility] Hep C Ab Nonreactive Nonreactive Comment: Interpretive [...] RAL ORDERABLES Final Result Performing Organization Address City/[facility]/ZIP Co de Phone Number DIONNE [address] [address] [place] [address] * (ABNORMAL) Vitamin D 25 hydroxy (03/16/2025 11:29 AM CDT) Pathologist [facility] Vitamin D 25-OH 19(L) 30 - 80 ng/mL Blood 03/16/2025 11:2 9 AM CDT 03/16/2025 9:50 PM CDT Ricco Mckeon MD LAB BLOOD ORDERABLES Fi nal Result Performing Organization Address [facility] Co de Phone Number DIONNE [address] [address] [place] [address] * (ABNORMAL) Hemoglobin A1c (03/16/2025 11:29 AM CDT) Pathologist [facility] Hgb A1C 5.8(H) 4.0 - 5.6 % Estimated Average Glucose 120 mg/dL DIONNE DIMAS Comment: The ADA recommends reporting an estimated Average Glucose (eAG) with all Hemoglobin A1c results using the equation derived from a study of 507 normal and diabetic adults. Minority populations were underrepresented and children were not included. (Diabetes Care 31:0364-4014, 2008). The eAG is not equivalent to a fasting glucose. Blood 03/16/2025 11:2 9 AM CDT 03/16/2025 9:50 PM CDT us Ricco Mckeon MD LAB BLOOD ORDERABLES Fi nal Result DIONNE [address] [address] Department [place] [address] * Lipid panel (03/16/2025 11:29 AM CDT) Cholesterol 168 30 - 199 mg/dL Comment: [...] 3. Mohit Morgan et al. BRITTANY Cardiol. 2019March 22;5(5):540-548. doi: 10.1001/jamacardio.2020.0013 Current Interpretive Data was [...] last revised on 2018. Chol/HDL ratio 4 DIONNE Blood 03/16/2025 11:2 9 AM CDT 03/16/2025 9:50 PM CDT Narrative DIONNE - 03/16/2025 10:27 PM CDT Has the patient been fasting for 8 hours or more?->No us Ricco Mckeon MD LAB BLOOD ORDERABLES Fi nal Result DIONNE DIMAS [address] [address] Department [place] [address] * (ABNORMAL) Comprehensive metabolic panel (03/16/2025 11:29 AM CDT) Sodium 140 135 - 145 mmol/L Potassium, pl 4.4 3.3 - 4.9 mmol/L [facility] Chloride 104 97 - 110 mmol/L [facility] CO2 23 22 - 32 mmol/L [facility] Anion gap 13 2 - 15 mmol/L [facility] BUN 17 6 - 25 mg/dL [facility] Creatinine 0.94 0.80 - 1.30 mg/dL [facility] Glucose 98 70 - 199 mg/dL [facility] Comment: Interpretive Data Fasting glucose >/= 126 [...] classification and Diagnosis of Diabetes Diabetes Care 202; 46: S19-S40. Current interpretive data was last [...] 9 AM CDT 03/16/2025 9:50 PM CDT us Ricco Mckeon MD LAB BLOOD ORDERABLES Fi nal Result DIONNE DIMAS [address] [address] Department [place] [address] * XR Shoulder Right 2 or More [...] 3:29 PM CDT) COVID-19 RNA Negative Negative Influenza A RNA Negative Negative [facility] Influenza B RNA Negative Negative [facility] RSV RNA Negative Negative [facility] Comment: Interpretive data: Testing performed by [facility]. This test is performed using the StorPool Xpert Xpress CoV-2/Flu/RSV plus assay. This is a multiplex, real-time reverse transcriptase PCR assay intended for the qualitative detection of nucleic acid from SARS-CoV-2, influenza A, influenza B, and respiratory syncytial virus. This assay has been cleared by the [place] Food and Drug administration. The performance characteristics have been verified by the [facility]. Results must be considered in the clinical context, and a negative result does not rule out infection. Interpretive Data last revised 2023 Nasopharyngeal 03/01/2025 3: 29 PM CDT 03/01/2025 9:30 PM CDT Narrative [facility] - 03/01/2025 10:45 PM CDT Is the Patient experiencing symptoms consistent with COVID?->Yes Caterina Grimm NP LAB MICROBIOLOGY - GENERAL ORD ERABLES Final Result DIONNE DIMAS [address] [address] Department [place] [address] * Throat culture Throat (03/01/2025 3:29 PM CDT) Report Final Report: No growth of pathogens. Comment:Testing performed by : [facility], [address] [facility], [place]., [address] Throat 03/01/2025 3:29 PM CDT 03/02/2025 2:01 AM CDT Narrative DIONNE DIMAS - 03/02/2025 9:04 PM CDT Testing performed by [facility] Microbiology Laboratory ([phone]). us Caterina Grimm NP LAB MICROBIOLOGY - GENERAL ORD ERABLES Final Result ABDIFATAHBLAIR [address] [address] Department [place] [address] * POC Influenza A/B, COVID-19 antigen (03/01/2025 3:24 PM CDT) Influenza A Ag, POC Negative Negative [facility] Influenza B Ag, POC Negative Negative [facility] COVID-19 Ag POC Presumptive Negative Presumptive Negative, Invalid [facility] Nasal 03/01/2025 3:24 PM CDT Caterina Grimm NP POINT OF CARE TEST ORDERABLES Final Result Performing Organization Address City/[facility]/ZIP Co de Phone Number [facility] [address] [place] [address] * POCT rapid strep A (03/01/2025 3:20 PM CDT) Rapid Strep A, POC Negative Negative Swab 03/01/2025 3:20 PM CDT us Caterina Grimm NP POINT OF CARE TEST ORDERABLES Final Result * [place] REMOVAL IMPACTED CERUMEN INSTRUMENTATION UNILAT (01/30/2025 3:00 PM CDT) Narrative Cheryl Duncan NP - 01/30/2025 3:00 PM CDT Cheryl Duncan NP 01/30/2025 4:56 PM Ear Cerumen Removal Performed by: Cheryl Duncan ROUTER MACHINE OPERATOR Authorized by: Cheryl Duncan NP Consent Given [...] well with no immediate complications Cheryl Duncan ROUTER MACHINE OPERATOR IN CLINIC/BEDSIDE ORDERABL ES Final Result from Last 3 Months Insurance [facility] OPEN ACCESS [facility] CHOICE PLUS [address] [place] [id number] Care Teams Ice Cream Dipper Relationship Specialty Start Date End Date Ricco Mckeon MD PCP - General Family Medicine 03/16/25
--- OUTSIDE RECORDS SUMMARY | 2025-04-27 14:08 | XMS_ITS | Encounter Summary ---
Author Organization [facility] Address [address] [place] [address] Care Team Providers Care Pullboat Engineer Name Role Phone Unavailable Primary Care Provider Unavailabl e Reason for Visit * Reason Onset Date Comments Notes faxed 01/07/2024 Someone called f [facility] Radiology Dept and needed Office notes from patient's visit. She only left a fax #[phone] Encounter Details Date Type Department Care Team (Late st Contact Info) Description 01/07/2024 Telephone [facility] Orthopedic Surgery - [place] [id number] [place] [address] [place] [address] Mando Pritchard PA-C [address] [phone] Notes faxed (Someone called from [facility] Radiology Dept and needed Office notes from patient's visit. 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 Sheonly left a fax #[phone] RTISING PRODUCTION MANAGER documented in this encounter Plan of Treatment Not on file documented as of this encounter Visit Diagnoses Not on filedocumented in this encounter
== END 2025-04-27 14:02 | disposition home or self-care (01) ==
PROVIDERS: PCP Family Medicine; Visit Provider Physician Assistant
DX: S43.431A Superior glenoid labrum lesion of right shoulder, initial encounter (principal); X58.XXXA Exposure to other specified factors, initial encounter; R93.6 Abnormal findings on diagnostic imaging of limbs
CPT/HCPCS: 23350; 73222; 77002; A9577; J2003